=== PATIENT | female | born 1990 | race Two or more races ===

== ENCOUNTER 2024-09-15 02:40 | Inpatient (IN) | payer MEDICAID, OTHER ==
[2024-09-15] VITALS (9 sets, daily range): BP systolic 130–165; BP diastolic 73–107; PULSE 66–90; RESP 16–18; TEMP 98–98.7; O2SAT 98–100
[~2024-09-15] VITALS: Ht 175.3 cm; Wt 113.6 kg
--- NOTE | 2024-09-15 03:21 | ED.PDOC ---
History of Present Illness HPI Comments 42-year-old female came to ER due the palpitations. Patient has history of hypertension and Sullivan Parkinson White. Patient states your provider recently change your hypertensive medications. For the past week, had episodes of palpitations twice. She was asleep, when she woke up to do palpitations, with associated headaches, nausea and vomiting. Blood pressure upon arrival was 170/100 mmHg Chief Complaint: Palpitations Time Seen by MD: 03:21 Reviewed Notes: Nurses Notes Allergies: Coded Allergies: NO KNOWN ALLERGIES (Unverified , 09/15/24) Information Source: Patient Mode of Arrival: Ambulatory Severity: Moderate Timing: Hours Duration: Intermittent Prehospital treatment: None Past Medical History PAST MEDICAL HISTORY: HTN Past Medical History (Other): Ozxqv-Rsdqezqln-Gygcv Surgical History: Denies all surgeries SYSTEMS APPLICATIONS PROGRAMMING LEAD History: Denies all SYSTEMS APPLICATIONS PROGRAMMING LEAD Hx Family History Family History: Reviewed,noncontributory to illness Social History Smoker: Non-Smoker Alcohol: Denies ETOH Use Drugs: Denies Drug Use Lives In: Home Constitutional: denies: chills, diaphoresis, fatigue, fever, malaise, sweats, weakness, others EENTM: denies: blurred vision, double vision, ear bleeding, ear discharge, ear drainage, ear pain, ear ringing, eye pain, eye redness, hearing loss, mouth pain, mouth swelling, nasal discharge, nose bleeding, nose congestion, nose pain, photophobia, tearing, throat pain, throat swelling, voice changes, others Respiratory: denies: cough, hemoptysis, orthopnea, SOB at rest, shortness of breath, SOB with excertion, stridor, wheezing, others Cardiovascular: reports: chest pain, palpitations; denies: dizzy spells, diaphoresis, Dyspnea on exertion, edema, irregular heart beat, left arm pain, lightheadedness, PND, syncope, others Gastrointestinal: reports: nausea, vomiting; denies: abdomen distended, abdominal pain, blood streaked bowels, constipated, diarrhea, dysphagia, difficulty swallowing, hematemesis, melena, poor appetite, poor fluid intake, rectal bleeding, rectal pain, others Genitourinary: denies: abnormal vagina bleeding, burning, dyspareunia, dysuria, flank pain, frequency, hematuria, incontinence, pain, , vagina discharge, urgency, others Neurological: denies: dizziness, fainting, headache, left sided numbness, left sided weakness, numbness, paresthesia, pre-existing deficit, right sided numbness, right sided weakness, seizure, speech problems, tingling, tremors, weakness, others Musculoskeletal: denies: back pain, gout, joint pain, joint swelling, muscle pain, muscle stiffness, neck pain, others Integumetry: denies: bruises, change in color, change in hair/nails, dryness, laceration, lesions, lumps, rash, wounds, others Allergic/Immunocompromised: denies: Difficulty Healing, Frequent Infections, Hives, Itching, others Hematologic/Lymphatic: denies: anemia, blood clots, easy bleeding, easy bruising, swollen glands, others Endocrine: denies: excessive hunger, excessive sweating, excessive thirst, excessive urination, flushing, intolerance to cold, intolerance to heat, unexplained weight gain, unexplained weight loss, others Psychiatric: denies: anxiety, bipolar disorder, depression, hopeless, panic disorder, schizophrenia, sleepless, suicidal, others Physical Exam General Appearance: No Apparent Distress, Normal HEENT: Normal ENT Inspection, Pharynx Normal, TMs Normal Neck: Full Range of Motion, Non-Tender, Normal, Normal Inspection Respiratory: Chest Non-Tender, Lungs Clear, No Accessory Muscle Use, No Respiratory Distress, Normal Breath Sounds Cardiovascular: No Edema, No JVD, No Murmur, No Gallop, Normal Peripheral Pulses, Regular Rate/Rhythm Breast Exam: Deferred Gastrointestinal: No Organomegaly, Non Tender, No Pulsatile Mass, Normal Bowel Sounds, Soft Genitalia: Deferred Pelvic: Deferred Rectal: Deferred Extremities: No calf tenderness, Normal capillary refill, Normal inspection, Normal range of motion, Non-tender, No pedal edema Musculoskeletal : Apperance: Normal Neurologic: Alert, supervisor picking crew II-XII nml as Tested, No Motor Deficits, Normal Affect, Normal Mood, No Sensory Deficits Cerebellar Function: Normal Reflexes: Normal Skin: Dry, Normal Color, Warm Lymphatic: No Adenopathy Was a procedure done? Was a procedure done?: No EKG EKG : Pulse Rate (adult): 72 Cardiac Rhythm: NSR Hypertrophy: LAE Differential Dx Considerations may include: Anemia, electrolyte imbalance, palpitations, hypertension X-Ray, Labs, Meds, VS Vital Signs Date Time Temp Pulse Resp B/P (MAP) Pulse Ox O2 Delivery O2 Flow Rate FiO2 09/15/24 03:21 72 09/15/24 02:54 98.2 74 18 170/100 (123) 100 98.2 Lab Test 09/15/24 05:56 09/15/24 03:47 09/15/24 02:50 Range/Units White Blood Count Pending Red Blood Count Pending Hemoglobin Pending Hematocrit Pending Mean Corpuscular Volume Pending Mean Corpuscular Hemoglobin Pending Mean Corpuscular Hemoglobin Concent Pending Red Cell Distribution Width Pending Platelet Count Pending Mean Platelet Volume Pending Neutrophils (%) (Auto) Pending Lymphocytes (%) (Auto) Pending Monocytes (%) (Auto) Pending Basophils (%) (Auto) Pending Neutrophils # (Auto) Pending Lymphocytes # (Auto) Pending Monocytes # (Auto) Pending Sodium Level 140 136-145 mmol/L Potassium Level 3.6 3.5-5.1 mmol/L Chloride Level 105 98-107 mmol/L Carbon Dioxide Level 26 20-31 mmol/L Anion Gap 9 5-15 Blood Urea Nitrogen 17 9-23 mg/dL Creatinine 1.07 H 0.550-1.02 mg/dL Glomerular Filtration Rate Calc 69 >90 mL/min BUN/Creatinine Ratio 15.9 10.0-20.0 Serum Glucose 91 74-106 mg/dL Calcium Level 9.6 8.7-10.4 mg/dL Troponin I High Sensitivity Pending 10 10 </=34 ng/L Time of 1ST Reevaluation: 03:14 Reevaluation 1ST: Unchanged Patient Education/Counseling: Diagnosis, Treatment Family Education/Counseling: No Family Present Departure 1 Departure Time of Disposition: 06:32 (Patient presented with chest pain that was concerning for possible STEMI, ACS, PE, Pneumonia, Muscle Strain, COPD, Dissection. Data: 1. I ordered and reviewed the result of at least 3 labs including a CBC, BMP, and Troponin. 2. I independently interpreted the following tests: EKG which shows sinus arrhythmia and Chest X-ray which shows benign chest.Risk:This patient has a high risk of morbidity due to further diagnostic testing or treatment and may suffer from an acute cardiac or respiratory disorder. Workup reveals concern for ACS and hypertensive urgency and patient should be admitted for further workup and possible expert consultation. ) Impression: Primary Impression: Hypertensive urgency Additional Impression: Acute chest pain Disposition: 09 ADMITTED INPATIENT Admit to: Med Surg Condition: Serious Critical Care Note Critical Care Time?: Yes (35 min-critical care time only) Critical care comment: Hypertensive urgency Authorized and Performed by: Oliva Martel MD Total critical care time: Approximately 38 minutes Due to a high probability of clinically significant, life threatening deterioration, the patient required my highest level of preparedness to intervene emergently and I personally spent this critical care time directly and personally managing the patient. This critical care time included obtaining a history; examining the patient; pulse oximetry; ordering and review of studies; arranging urgent treatment with development of a management plan; evaluation of patient's response to treatment; frequent reassessment; and, discussions with other providers. This critical care time was performed to assess and manage the high probability of imminent, life-threatening deterioration that could result in multi-organ failure. It was exclusive of separately billable procedures and treating other patients and teaching time. Please see my other sections and the rest of the note for further information on patient assessment and treatment. Stability Stability form required: No Heart Score Heart Score: Heart Score Response (Comments) Value History Slightly Suspicious 0 EKG Repolarization Disturb 1 Age <45 0 Risk Factors 1 or 2 risk factors 1 Troponin Normal limit 0 Total 2 I personally scribed for OLIVA MARTEL MD ([email or web address]) on 09/15/24 at 03:21. Electronically submitted by Nickolas Friedman ([email or web address]). I personally scribed for OLIVA MARTEL MD ([email or web address]) on 09/15/24 at 03:35. Electronically submitted by Nickolas Friedman ([email or web address]). OLIVA MARTEL MD Sep 15, 2024 03:21
--- NOTE | 2024-09-15 05:53 | DVH ---
CHEST RADIOGRAPH Indication: palpitations Technique: Single frontal view of the chest was obtained COMPARISON: None FINDINGS: Lines and Tubes: None Lungs: Clear Pleura: No effusion. No pneumothorax. Cardiomediastinal contours: Unremarkable. Possible right atrial closure device. Bones: Unremarkable IMPRESSION: 1. No acute disease.
[2024-09-15 06:17] LABS: Basophils # (auto) 0.1 10 ^3/uL (0-0.2); Basophils % (auto) 0.7 % (0.0-2.0); Eosinophils # (auto) 0 10 ^3/uL (0-0.8); Eosinophils % (auto) 0.2 % (0.0-7.0); Hemoglobin 12.4 g/dL (12.2-16.2); Lymphocytes # (auto) 2.8 10 ^3/uL (0.4-5.4); Mean Corpuscular Volume 80.3 fL (80.0-100.0); Neutrophils # (auto) 6.5 10 ^3/uL (1.6-8.6); Platelet Count (auto) 318 10^3/uL (140-450)
[2024-09-15 06:18] LABS: Lymphocytes % (auto) 28.3 % (10.0-50.0); Mean Corpuscular Hemoglobin 26.8 pg (28.0-32.0); Mean Corpuscular Hgb Conc. 33.4 g/dL (32.0-36.0); Monocytes # (auto) 0.6 10 ^3/uL (0-1.3); Monocytes % (auto) 5.6 % (0.0-12.0); Neutrophils % (auto) 65.2 % (37.0-80.0); Nucleated Red Blood Cells % 0.1 %; Red Blood Cells 4.61 10^6/uL (4.0-5.20); Red Cell Distribution Width 14.6 % (11.8-14.3)
[2024-09-15 06:21] LABS: Chloride 105 mmol/L (98-107); Potassium 3.6 mmol/L (3.5-5.1); Sodium 140 mmol/L (136-145)
[2024-09-15 06:22] LABS: Anion Gap 9 (5-15); Carbon Dioxide 26 mmol/L (20-31)
[2024-09-15 06:23] LABS: Calcium 9.6 mg/dL (8.7-10.4)
[2024-09-15 06:27] LABS: Glucose 91 mg/dL (74-106)
[2024-09-15 06:28] LABS: BUN/Creatinine Ratio 15.9 (10.0-20.0); Blood Urea Nitrogen 17 mg/dL (9-23)
--- NOTE | 2024-09-15 07:16 | DVHHP2 ---
History of Present Illness Reason for Visit: Uncontrolled BP History of Present Illness This 34-year-old female with past medical history of hypertension, Sullivan Parkinson White s/p catheter ablation, and obesity presents in the ED with a chief complaint of uncontrolled BP. The patient reports that she used to take losartan for hypertension but stopped the medication because of the weight gain. The patient states that she was started on benazepril 40 mg QD and Zoloft 50mg QD by her primary doctor four days ago, since starting with the new medications, BP became uncontrolled [id number]. She denies headaches, diaphoresis, chest pain, shortness of breath, or dyspnea on exertion. Past Medical History As stated in HPI Past Surgical History Catheter ablation Family History Reviewed, non-contributory to the management of this case. Past Social History The patient lives at home, denies smoking, alcohol or illicit drugs abuse. Review of Systems Constitutional: Yes: Malaise; No: Fever, Chills, Sweats, Weakness, Other Eyes: No: Pain, Vision change, Conjunctivae inflammation, Eyelid inflammation, Other, Redness ENT: No: Ear pain, Ear discharge, Nose pain, Nose discharge, Nose congestion, Mouth pain, Mouth swelling, Throat pain, Throat swelling, Other Respiratory: No: Cough, Dry, Shortness of breath, SOB with excertion, Wheezing, Hemoptysis, Pleuritic Pain, Sputum, Wheezing, Other Cardiovascular: Palpitations, Other (Uncontrolled BP); No: Chest Pain, O rthopnea, Paroxysmal Noc. Dyspnea, Edema, Lt Headedness Gastrointestinal: No: Nausea, Vomiting, Abdominal Pain, Diarrhea, Constipation, Melena, Hematochezia, Other Genitourinary: No Dysuria, No Frequency, No Incontinence, No Hematuria, No Retention, No Other Skin: No: Rash, Lesions, Jaundice, Bruising, Other Neurological: No: Weakness, Numbness, Incoordination, Change in speech, Confusion, Seizures, Other Allergies: Coded Allergies: NO KNOWN ALLERGIES (Unverified , 09/15/24) Exam Vital Signs Vital Signs Date Time Temp Pulse Resp B/P (MAP) Pulse Ox O2 Delivery O2 Flow Rate FiO2 09/15/24 03:21 72 09/15/24 02:54 98.2 18 170/100 (123) 100 98.2 General Appearance: Alert, Oriented X3, Cooperative, mild distress, Other (Obese) HEENT: Atraumatic, PERRLA, EOMI, Mucous membr. moist/pink Respiratory: Clear to auscultation Cardiovascular: Regular rate, Normal S1, Normal S2, No murmurs Abdominal: Normal bowel sounds, Soft, No tenderness Extremities: No clubbing, No cyanosis, No edema, Normal pulses, No tenderness/swelling Skin: No rashes, No breakdown, No significant lesion Neuro: Normal gait, Normal speech, Strength at 5/5 X4 ext, Normal tone Psych/Mental Status: Mental status NL Labs/Xrays Labs Test 09/15/24 05:56 Range/Units White Blood Count 10.0 4.4-10.8 10^3/uL Red Blood Count 4.61 4.0-5.20 10^6/uL Hemoglobin 12.4 12.2-16.2 g/dL Hematocrit 37.0 36.0-46.0 % Mean Corpuscular Volume 80.3 80.0-100.0 fL Mean Corpuscular Hemoglobin 26.8 L 28.0-32.0 pg Mean Corpuscular Hemoglobin Concent 33.4 32.0-36.0 g/dL Red Cell Distribution Width 14.6 H 11.8-14.3 % Platelet Count 318 140-450 10^3/uL Mean Platelet Volume 6.7 L 6.9-10.8 fL Neutrophils (%) (Auto) 65.2 37.0-80.0 % Lymphocytes (%) (Auto) 28.3 10.0-50.0 % Monocytes (%) (Auto) 5.6 0.0-12.0 % Eosinophils (%) (Auto) 0.2 0.0-7.0 % Basophils (%) (Auto) 0.7 0.0-2.0 % Neutrophils # (Auto) 6.5 1.6-8.6 10 ^3/uL Lymphocytes # (Auto) 2.8 0.4-5.4 10 ^3/uL Monocytes # (Auto) 0.6 0-1.3 10 ^3/uL Eosinophils # (Auto) 0 0-0.8 10 ^3/uL Basophils # (Auto) 0.1 0-0.2 10 ^3/uL Nucleated Red Blood Cells 0.1 % Sodium Level 140 136-145 mmol/L Potassium Level 3.6 3.5-5.1 mmol/L Chloride Level 105 98-107 mmol/L Carbon Dioxide Level 26 20-31 mmol/L Anion Gap 9 5-15 Blood Urea Nitrogen 17 9-23 mg/dL Creatinine 1.07 H 0.550-1.02 mg/dL Glomerular Filtration Rate Calc 69 >90 mL/min BUN/Creatinine Ratio 15.9 10.0-20.0 Serum Glucose 91 74-106 mg/dL Calcium Level 9.6 8.7-10.4 mg/dL Troponin I High Sensitivity 9 </=34 ng/L PROCEDURE(s): CXRP - CHEST PORTABLE REASON: palpitations ORDER NUMBER(s): [id number], ACCESSION NUMBER(s): [id number] CHEST RADIOGRAPH Indication: palpitations Technique: Single frontal view of the chest was obtained COMPARISON: None FINDINGS: Lines and Tubes: None Lungs: Clear Pleura: No effusion. No pneumothorax. Cardiomediastinal contours: Unremarkable. Possible right atrial closure device. Bones: Unremarkable IMPRESSION: 1. No acute disease. Assessment/Plan Assessment/Plan # accelerated hypertension # palpitations # hx of WPW s/p catheter ablation Admit to telemetry unit Started on nifedipine Hydralazine as needed Magnesium IV Monitor BP Echo Cardiology consult #JERMAINE on CKD 2 IVF Monitor # morbid obesity Lifestyle modification counseled with diet, regular exercise, and weight loss check a1c, tsh, lipid panel Medical plan discussed with patient Plan discussed with: Patient Date of Service: Sep 15, 2024 Billing Provider: DECLAN MAYERS Common Visit Codes: [id number] INP/OBS CARE (HIGH) DECLAN MAYERS Sep 15, 2024 07:16
[2024-09-15] MEDS: NIFEdipine ER 30 MG TAB PO ONE (08:43)
[2024-09-15] MEDS: hydrALAZINE HCL 20 MG/ML VL IV ONE (08:44)
[2024-09-15 09:01] LABS: Triglycerides 97 mg/dL (< 150)
[2024-09-15 09:03] LABS: HDL Cholesterol 56 mg/dL (40-59)
[2024-09-15 09:09] LABS: Cholesterol 183 mg/dL (< 200)
[2024-09-15 09:11] LABS: LDL Cholesterol 109 mg/dL (< 100)
[2024-09-15 09:58] LABS: Urine Bacteria None Seen /hpf (None Seen)
[2024-09-15] MEDS: MAGNESIUM SULFATE 1GM/100ML 100 ML IV ONE (10:00)
[2024-09-15] MEDS: SOD CHL 0.45% 1,000 ML IV SCH (10:04)
[2024-09-15] MEDS: ACETAMINOPHEN 325 MG TAB PO PRN (10:07)
[2024-09-15 10:09] LABS: Urine Blood Negative /uL (Negative); Urine Clarity Clear (Clear); Urine Color Light-Yellow (Yellow); Urine Protein, UAD Negative (Negative); Urine Specific Gravity 1.019 (1.001-1.035); Urine Squamous Epithelial Cell FEW /hpf (<5); Urine Urobilinogen Normal (Negative); Urine WBC 1 /HPF (0-5); Urine pH 5.5 (5.0-9.0)
--- NOTE | 2024-09-15 13:16 | DVHINCON2 ---
Date Seen: Sep 15, 2024 Referring Physician MOE Shah Reason for Consultation Palpitations with history of WPW History of Present Illness This is a 34-year-old female patient who presents to the emergency room with chief complaint of palpitations. The patient reports that the palpitations b wilbur at approximately 2:00 a.m. when she woke up to use the restroom. She comes to the emergency room for further evaluation. Initial twelve lead electrocardiogram reveals normal sinus rhythm without any ST segment changes. Troponin levels have been negative. Significant past medical history includes Rksae-Tpzagtvas-Ivxau syndrome status post ablation in 2017, hypertension, and obesity. The patient also mentions that she has a loop recorder that was placed in 2017. She denies following up with a broadcast maintenance technician since 2017. Past Medical History Past medical history reviewed. No other significant than mentioned above. Past Surgical History Cholecystectomy Family History: Cardiovascular disease G8 MOTHER Diabetes mellitus G8 MOTHER Hypercholesterolemia G8 MOTHER Family History Family history reviewed. Social History Denies the use of tobacco, alcohol or illicit drugs. Allergies: Coded Allergies: NO KNOWN ALLERGIES (Unverified , 09/15/24) Home Meds Home medications reviewed. Current Medications Current Medications Medications (Trade) Dose Ordered Sig/Roberto Route PRN Reason Start Time Stop Time Status Last Admin Acetaminophen/ Hydrocodone Bitart ([place] 5/325MG Tab) 1 tab Q4HP PRN PO MODERATE PAIN (4-6 PAIN SCALE) 09/15/24 07:00 Ondansetron HCl (Zofran) 4 mg Q4HP PRN IV NAUSEA / VOMITING 09/15/24 07:00 Acetaminophen (Tylenol Tablet) 650 mg Q6HP PRN PO PAIN SCALE 1-3 OR TEMP>100.4 09/15/24 07:00 09/15/24 10:07 Morphine Sulfate 2 mg Q4HPRN PRN IV SEVERE PAIN (7-10 PAIN SCALE) 09/15/24 07:00 Sodium Chloride 1,000 ml @ 100 mls/hr Q10H IV 09/15/24 07:00 09/15/24 10:04 Hydralazine HCl (Apresoline Injection) 10 mg Q6HP PRN IV SBP>150 09/15/24 07:00 Nifedipine (Procardia Xl (Time-Release)) 60 mg DAILY PO 09/16/24 10:00 Review of Systems Constitutional: No symptom reported Ears, Nose, & Throat: No symptom reported Eyes: No symptom reported Neurological: No symptoms reported Pulmonary/Respiratory: No symptoms reported Cardiovascular: Palpitations Gastrointestinal: No symptom reported Genitourinary: No symptom reported Musculoskeletal: No symptom reported Skin: No symptom reported Psychiatric: No symptom reported Endocrine: No symptom reported Hematologic/Lymphatic: No symptom reported Vital Signs Vital Signs Date Time Temp Pulse Resp B/P (MAP) Pulse Ox O2 Delivery O2 Flow Rate FiO2 09/15/24 12:56 78 18 130/76 (94) 99 09/15/24 08:06 Room Air* 0 21 09/15/24 08:06 98.7 98.7 Physical Exam General Appearance: Cooperative. Well-developed. Well-nourished. No acute distress. Pulmonary/Respiratory: Clear, bilateral breaths sounds. Cardiovascular/Chest: Regular rate and rhythm. Peripheral Pulses: 2+ Radial (R). 2+ Radial (L). 2+ Pedal (R). 2+ Pedal (L) Abdominal Exam: Normal bowel sounds. Ankle Exam: Negative ankle edema Lower extremities: Negative lower extremity edema Neuro/Mental Status: A/OX4, coherent. Thoughts/Psych: Normal thought pattern. Appropriate mood and affect. Good judgment and insight. Appearance: No acute distress. Skin Exam: Normal inspection. Normal color. Warm and dry. Labs/Diagnostic Data Labs Test 09/15/24 09:57 09/15/24 05:56 Range/Units Urine Color Light-yellow Yellow Urine Clarity Clear Clear Urine pH 5.5 5.0-9.0 Urine Specific [place] 1.019 1.001-1.035 Urine Protein Negative Negative Urine Ketones Negative Negative Urine Blood Negative Negative /uL Urine Nitrite Negative Negative Urine Bilirubin Negative Negative Urine Urobilinogen Normal Negative mg/dL Urine Leukocyte Esterase Negative Negative /uL Urine RBC 2 0 - 4 /hpf Urine Microscopic WBC 1 0-5 /HPF Urine Squamous Epithelial Cells Few <5 /hpf Urine Bacteria None seen None Seen /hpf Urine Glucose Normal Normal mg/dL Urine Test Negative Negative White Blood Count 10.0 4.4-10.8 10^3/uL Red Blood Count 4.61 4.0-5.20 10^6/uL Hemoglobin 12.4 12.2-16.2 g/dL Hematocrit 37.0 36.0-46.0 % Mean Corpuscular Volume 80.3 80.0-100.0 fL Mean Corpuscular Hemoglobin 26.8 L 28.0-32.0 pg Mean Corpuscular Hemoglobin Concent 33.4 32.0-36.0 g/dL Red Cell Distribution Width 14.6 H 11.8-14.3 % Platelet Count 318 140-450 10^3/uL Mean Platelet Volume 6.7 L 6.9-10.8 fL Neutrophils (%) (Auto) 65.2 37.0-80.0 % Lymphocytes (%) (Auto) 28.3 10.0-50.0 % Monocytes (%) (Auto) 5.6 0.0-12.0 % Eosinophils (%) (Auto) 0.2 0.0-7.0 % Basophils (%) (Auto) 0.7 0.0-2.0 % Neutrophils # (Auto) 6.5 1.6-8.6 10 ^3/uL Lymphocytes # (Auto) 2.8 0.4-5.4 10 ^3/uL Monocytes # (Auto) 0.6 0-1.3 10 ^3/uL Eosinophils # (Auto) 0 0-0.8 10 ^3/uL Basophils # (Auto) 0.1 0-0.2 10 ^3/uL Nucleated Red Blood Cells 0.1 % Sodium Level 140 136-145 mmol/L Potassium Level 3.6 3.5-5.1 mmol/L Chloride Level 105 98-107 mmol/L Carbon Dioxide Level 26 20-31 mmol/L Anion Gap 9 5-15 Blood Urea Nitrogen 17 9-23 mg/dL Creatinine 1.07 H 0.550-1.02 mg/dL Glomerular Filtration Rate Calc 69 >90 mL/min BUN/Creatinine Ratio 15.9 10.0-20.0 Serum Glucose 91 74-106 mg/dL Hemoglobin A1c 5.2 <5.7 % A1C Calcium Level 9.6 8.7-10.4 mg/dL Magnesium Level 2.1 1.6-2.6 mg/dL Troponin I High Sensitivity 9 </=34 ng/L Triglycerides Level 97 < 150 mg/dL Cholesterol Level 183 < 200 mg/dL LDL Cholesterol 109 H < 100 mg/dL HDL Cholesterol 56 40-59 mg/dL Thyroid Stimulating Hormone (TSH) 1.66 0.55-4.78 uIU/mL Assessment Palpitations, rule out cardiac arrhythmia Vgnvq-Evnwhxgxb-Qaefs syndrome, status post ablation Rule out structural heart disease Hypertensive urgency, resolved Obesity Plan/Recommendation We will continue with the following plan/recommendations (Dr. Lopez): Case discussed with . We will proceed with obtaining a transthoracic echocardiogram to evaluate cardiac function. Continue with the aggressive blood pressure control. The patient currently has a loop recorder that was placed in 2017 (battery likely not functional at this point since greater than [address]). There are no cardiac events noted on event monitor at this time. In the setting of an unremarkable transthoracic echocardiogram, there is no further inpatient cardiac workup indicated at this time. We will recommend for the patient to follow up with Cardiology in the outpatient setting. We will recommend for the patient to have her loop recorder replaced, which can be done in the outpatient setting. Thank you for allowing us to care for this patient. Please call with any questions or concerns. Critical care time spent: 43 minutes This medical document was created using an electronic medical record system with voice recognition software and computerized dictation system. Although this document has been carefully reviewed, there might still be some phonetic and typographical errors. Occasional wrong-word or ``sound-alike substitutions may have occurred due to the inherent limitations of voice recognition software. These areas are purely typographical due to imperfections of the software programs and do not reflect any compromise in the patient's medical care. Please read the chart carefully and recognize, using context, where these substitutions have occurred. Plan discussed with: Patient NYHA Physical activity limitations: NA Date of Service: Sep 15, 2024 Billing Provider: REMY MARISCAL Cardiology Common Codes: 62523-[id number] INP/OBS CARE (High) Cardiology Consultation Codes: [id number] CONSULT <45MIN REMY MARISCAL Sep 15, 2024 13:16
--- NOTE | 2024-09-15 15:18 | DVHSR ---
APPROVED REPORT EXAM: Two-dimensional and M-mode echocardiogram with Doppler and color Doppler. Blood Pressure: 165/107 mmHg INDICATION Accelerated HTN RISK FACTORS Obesity: Height: 5' 9", Weight: 254 DIMENSIONS LVDd4.3 (3.8-5.7cm)LA (2D)4.0 (1.9-4.0cm)Aortic Root3.1 (2.0-3.7cm) LVDs2.9 (2.5-4.0cm)LA (MM) (1.9-4.0cm)Aortic Cusp Exc1.9 (1.5-2.0cm) EF (%) 62.1 (55-70%)Rt. Atrium4.0 (1.9-4.0cm)Asc. Aorta cm IVSd1.2 (0.7-1.1cm)RV (D) (1.8-2.4cm) PWd1.2 (0.7-1.1cm) Mitral Valve MitralMitral Stenosis E wave0.80m/sMV Mean GR.mmHg A wave0.50m/sMV Peak GR.mmHg E/A ratio1.62D MVAcm2 Aortic Valve Aortic ValveAortic Stenosis V11.10m/Michela Mean GR.5mmHg V21.50m/Michela Peak GR.9mmHg LVOT Diameter2.2 (1.8-2.4cm)Doppler AVA2.79cm2 Pulmonic Valve V20.70m/s Conclusion Sinus rhythm Concentric LVH with left atrial enlargement. Mild aortic root enlargement. Valves are normal. Left ventricular systolic performance is normal at 60% with normal RV function. Unremarkable Doppler. No pericardial effusion masses or vegetations.
[2024-09-15] MEDS: MORPHINE SULFATE INJ 2 MG/ml SYRG IV PRN (15:59)
[2024-09-15] MEDS: HYDROcodone-ACET 5/325MG TAB PO PRN (18:07)
[2024-09-15] MEDS: hydrALAZINE HCL 20 MG/ML VL IV PRN (21:59)
--- NOTE | 2024-09-15 23:11 | DVHPN2 ---
Subjective The patient is seen and examined at bedside. No complaint today. Reviewed: Care Plan, H&P, Labs, Medications, Previous Orders, Radiology Changes from previous H/P or p: No Changes Eyes: No Pain, No Vision change, No Conjunctivae inflammation, No Eyelid inflammation, No Other, No Redness ENT: No Ear pain, No Ear discharge, No Nose pain, No Nose discharge, No Nose congestion, No Mouth pain, No Mouth swelling, No Throat pain, No Throat swelling, No Other Cardiovascular: No Chest Pain; Palpitations; No Orthopnea, No Paroxysmal Noc. Dyspnea, No Edema, No Lt Headedness; Other (Uncontrolled BP) Respiratory: No Cough, No Dry, No Shortness of breath, No SOB with excertion, No Wheezing, No Hemoptysis, No Pleuritic Pain, No Sputum, No Other Gastrointestinal: No Nausea, No Vomiting, No Abdominal Pain, No Diarrhea, No Constipation, No Melena, No Hematochezia, No Other Genitourinary: No Dysuria, No Frequency, No Incontinence, No Hematuria, No Retention, No Other Skin: No Rash, No Lesions, No Jaundice, No Bruising, No Other Objective Vitals Vital Signs Date Time Temp Pulse Resp B/P (MAP) Pulse Ox O2 Delivery O2 Flow Rate FiO2 09/15/24 22:45 90 151/82 (105) 09/15/24 21:00 98.2 18 98 98.2 09/15/24 08:06 Room Air* 0 21 General Appearance: Alert, Oriented X3, Cooperative, No acute distress HEENT: Atraumatic, PERRLA, EOMI, Mucous membr. moist/pink Neck: Supple Lungs: Clear to auscultation, Normal air movement Cardiovascular: Regular rate, Normal S1, Normal S2, No murmurs, Gallops, Rubs Abdomen: Normal bowel sounds, Soft, No tenderness, No hepatospenomegaly Neuro: Cranial nerves 3-12 NL Psych/Mental Status: Mental status NL Medications Current Medications Medications Dose Ordered Sig/Roberto Route Start Time Stop Time Status Last Admin Dose Admin Acetaminophen/ Hydrocodone Bitart 1 tab Q4HP PRN PO 09/15/24 07:00 09/15/24 18:07 1 TAB Ondansetron HCl 4 mg Q4HP PRN IV 09/15/24 07:00 Acetaminophen 650 mg Q6HP PRN PO 09/15/24 07:00 09/15/24 10:07 650 MG Morphine Sulfate 2 mg Q4HPRN PRN IV 09/15/24 07:00 09/15/24 15:59 2 MG Sodium Chloride 1,000 ml @ 100 mls/hr Q10H IV 09/15/24 07:00 09/15/24 15:54 100 MLS/HR Hydralazine HCl 10 mg Q6HP PRN IV 09/15/24 07:00 09/15/24 21:59 10 MG Nifedipine 60 mg DAILY PO 09/16/24 10:00 Laboratory Results Laboratory Tests 09/15/24 05:56 Chemistry Test 09/15/24 05:56 Calcium Level 9.6 mg/dL (8.7-10.4) Magnesium Level 2.1 mg/dL (1.6-2.6) Lipid panel Test 09/15/24 05:56 Cholesterol Level 183 mg/dL (< 200) HDL Cholesterol 56 mg/dL (40-59) Triglycerides Level 97 mg/dL (< 150) HgA1c, TSH Test 09/15/24 05:56 Hemoglobin A1c 5.2 % A1C (<5.7) Thyroid Stimulating Hormone (TSH) 1.66 uIU/mL (0.55-4.78) Urinalysis Test 09/15/24 09:57 Urine Color Light-yellow (Yellow) Urine Clarity Clear (Clear) Urine pH 5.5 (5.0-9.0) Urine Specific [place] 1.019 (1.001-1.035) Urine Protein Negative (Negative) Urine Ketones Negative (Negative) Urine Blood Negative /uL (Negative) Urine Nitrite Negative (Negative) Urine Bilirubin Negative (Negative) Urine Urobilinogen Normal mg/dL (Negative) Urine Leukocyte Esterase Negative /uL (Negative) Urine RBC 2 /hpf (0 - 4) Urine Microscopic WBC 1 /HPF (0-5) Urine Squamous Epithelial Cells Few /hpf (<5) Urine Bacteria None seen /hpf (None Seen) Urine Glucose Normal mg/dL (Normal) Urine Test Negative (Negative) Labs and/or images reviewed: Labs reviewed by me Assessment/Plan Assessment/Plan # accelerated hypertension # palpitations # hx of WPW s/p catheter ablation #JERMAINE on CKD 2 # morbid obesity Continuing current management with nifedipine IV hydralazine as needed. We will monitor blood pressure Plan discussed with: Patient Date of Service: Sep 15, 2024 Billing Provider: MARIA ESTHER BELL MD Common Visit Codes: [id number] INP/OBS CARE(HIGH) MARIA ESTHER BELL MD Sep 15, 2024 23:11
[2024-09-15] MEDS: ONDANSETRON HCL 4 MG/2 ML VIAL IV PRN (23:21)
[2024-09-16 00:05] VITALS: BP 128/72; PULSE 78; RESP 20; TEMP 97.9; O2SAT 96
[2024-09-16 05:00] VITALS: BP 116/62; PULSE 70; RESP 18; TEMP 98.1; O2SAT 98
[2024-09-16 05:40] LABS: Basophils # (auto) 0 10 ^3/uL (0-0.2); Basophils % (auto) 0.3 % (0.0-2.0); Eosinophils # (auto) 0 10 ^3/uL (0-0.8); Eosinophils % (auto) 0.1 % (0.0-7.0); Hematocrit 36.2 % (36.0-46.0); Hemoglobin 12.1 g/dL (12.2-16.2); Lymphocytes # (auto) 2.2 10 ^3/uL (0.4-5.4); Lymphocytes % (auto) 25.6 % (10.0-50.0); Mean Corpuscular Hemoglobin 27.3 pg (28.0-32.0); Mean Corpuscular Hgb Conc. 33.5 g/dL (32.0-36.0); Mean Corpuscular Volume 81.4 fL (80.0-100.0); Monocytes # (auto) 0.5 10 ^3/uL (0-1.3); Monocytes % (auto) 5.5 % (0.0-12.0); Neutrophils # (auto) 5.8 10 ^3/uL (1.6-8.6); Neutrophils % (auto) 68.5 % (37.0-80.0); Platelet Count (auto) 306 10^3/uL (140-450); Red Blood Cells 4.45 10^6/uL (4.0-5.20); Red Cell Distribution Width 15.2 % (11.8-14.3); White Blood Cell 8.4 10^3/uL (4.4-10.8)
[2024-09-16 05:56] LABS: Alanine Aminotransferase 15 U/L (7-40); Albumin 4.2 g/dL (3.2-4.8); Alkaline Phosphatase 58 U/L (46-116); Anion Gap 9 (5-15); Aspartate Aminotransferase 14 U/L (13-40); BUN/Creatinine Ratio 11.2 (10.0-20.0); Blood Urea Nitrogen 10 mg/dL (9-23); Calcium 9.2 mg/dL (8.7-10.4); Carbon Dioxide 24 mmol/L (20-31); Chloride 106 mmol/L (98-107); Glucose 95 mg/dL (74-106); Potassium 3.7 mmol/L (3.5-5.1); Sodium 139 mmol/L (136-145); Total Protein 6.7 g/dL (5.7-8.2)
[2024-09-16 05:57] LABS: Bilirubin, Total 0.4 mg/dL (0.2-1.0)
[2024-09-16 08:00] VITALS: PULSE 65; PULSE 96; RESP 18; O2SAT 99
[2024-09-16 09:00] VITALS: BP 126/68; PULSE 96; RESP 18; TEMP 98.2; O2SAT 99
[2024-09-16] MEDS: NIFEdipine ER 30 MG TAB PO SCH (10:38)
[2024-09-16 13:00] VITALS: BP 135/82; PULSE 69; RESP 16; TEMP 98; O2SAT 100
--- NOTE | 2024-09-16 13:12 | DVHDS2 ---
Discharge Summary Date of Admission Sep 15, 2024 at 06:46 Date of Discharge: Sep 16, 2024 Labs/Diagnostic Data: Laboratory Results Test 09/16/24 05:00 09/15/24 09:57 09/15/24 05:56 White Blood Count 8.4 10^3/uL (4.4-10.8) Red Blood Count 4.45 10^6/uL (4.0-5.20) Hemoglobin 12.1 g/dL (12.2-16.2) Hematocrit 36.2 % (36.0-46.0) Mean Corpuscular Volume 81.4 fL (80.0-100.0) Mean Corpuscular Hemoglobin 27.3 pg (28.0-32.0) Mean Corpuscular Hemoglobin Concent 33.5 g/dL (32.0-36.0) Red Cell Distribution Width 15.2 % (11.8-14.3) Platelet Count 306 10^3/uL (140-450) Mean Platelet Volume 6.6 fL (6.9-10.8) Neutrophils (%) (Auto) 68.5 % (37.0-80.0) Lymphocytes (%) (Auto) 25.6 % (10.0-50.0) Monocytes (%) (Auto) 5.5 % (0.0-12.0) Eosinophils (%) (Auto) 0.1 % (0.0-7.0) Basophils (%) (Auto) 0.3 % (0.0-2.0) Neutrophils # (Auto) 5.8 10 ^3/uL (1.6-8.6) Lymphocytes # (Auto) 2.2 10 ^3/uL (0.4-5.4) Monocytes # (Auto) 0.5 10 ^3/uL (0-1.3) Eosinophils # (Auto) 0 10 ^3/uL (0-0.8) Basophils # (Auto) 0 10 ^3/uL (0-0.2) Nucleated Red Blood Cells 0.0 % Sodium Level 139 mmol/L (136-145) Potassium Level 3.7 mmol/L (3.5-5.1) Chloride Level 106 mmol/L (98-107) Carbon Dioxide Level 24 mmol/L (20-31) Anion Gap 9 (5-15) Blood Urea Nitrogen 10 mg/dL (9-23) Creatinine 0.89 mg/dL (0.550-1.02) Glomerular Filtration Rate Calc 86 mL/min (>90) BUN/Creatinine Ratio 11.2 (10.0-20.0) Serum Glucose 95 mg/dL (74-106) Calcium Level 9.2 mg/dL (8.7-10.4) Total Bilirubin 0.4 mg/dL (0.2-1.0) Aspartate Amino Transferase (AST) 14 U/L (13-40) Alanine Aminotransferase (ALT) 15 U/L (7-40) Alkaline Phosphatase 58 U/L (46-116) Total Protein 6.7 g/dL (5.7-8.2) Albumin 4.2 g/dL (3.2-4.8) Urine Color Light-yellow (Yellow) Urine Clarity Clear (Clear) Urine pH 5.5 (5.0-9.0) Urine Specific [place] 1.019 (1.001-1.035) Urine Protein Negative (Negative) Urine Ketones Negative (Negative) Urine Blood Negative /uL (Negative) Urine Nitrite Negative (Negative) Urine Bilirubin Negative (Negative) Urine Urobilinogen Normal mg/dL (Negative) Urine Leukocyte Esterase Negative /uL (Negative) Urine RBC 2 /hpf (0 - 4) Urine Microscopic WBC 1 /HPF (0-5) Urine Squamous Epithelial Cells Few /hpf (<5) Urine Bacteria None seen /hpf (None Seen) Urine Glucose Normal mg/dL (Normal) Urine Test Negative (Negative) Hemoglobin A1c 5.2 % A1C (<5.7) Magnesium Level 2.1 mg/dL (1.6-2.6) Troponin I High Sensitivity 9 ng/L (</=34) Triglycerides Level 97 mg/dL (< 150) Cholesterol Level 183 mg/dL (< 200) LDL Cholesterol 109 mg/dL (< 100) HDL Cholesterol 56 mg/dL (40-59) Thyroid Stimulating Hormone (TSH) 1.66 uIU/mL (0.55-4.78) Other Laboratory Tests 09/16/24 05:00 Brief Hx & Hospital Course: see dictated note Condition at Discharge: Fair Final Diagnosis/Problems List htn Discharge Disposition: Home Discharge Instruct/Medications Diet: Cardiac 2g Na,low cholest Activity: See Comment Follow Up/Referral: fu with pcp in 1 wk Medications: script to pharmacy dc losartan Discharge Statement: "Patient was advised to return to the ER or call 911 if any headaches, dizziness, shortness of breath, chest pain, abdominal pain, bleeding, fevers, or worsening of medical condition. Patient was counseled about treatment plan, medications, possible side effects, patientverbalized understanding. All questions were answered to the best of my ability. This discharge took greater then 30 minutes in planning, reviewing documentation, counseling the patient, and discussing with other team members." ASSESSMENT ASSESSMENT Assessment htn Date of Service: Sep 16, 2024 Billing Provider: MARY BETH HERNANDEZ MD Common Visit Codes: [id number] DISCH DAY >30min MARY BETH HERNANDEZ MD Sep 16, 2024 13:12
[2024-09-16] MEDS ORDERED: NIFE1TAB30 PO (13:13)
[2024-09-16] MEDS ORDERED: HYDR25TA4 PO (13:13)
--- NOTE | 2024-09-16 13:23 | DVHDS ---
DATE OF DISCHARGE: 09/16/2024 The patient is a 34-year-old lady who was admitted with elevated blood pressure and has history of WPW status post ablation as well as hypertension. HOSPITAL COURSE: The patient's blood pressure was elevated to 170/100. The patient was seen in Cardiology consult. Echocardiogram done showed ejection fraction of 60% with concentric LVH. The patient is now improved in the blood pressure and wishes to go home. She will be discharged to be on hydrochlorothiazide 25 mg daily along with nifedipine extended release 60 mg daily. She will follow up with her primary in 1 week. FINAL DIAGNOSES: Therefore, * Hypertensive urgency. * WPW status post ablation. * Obesity. Time spent in discharge planning and review of plan with the patient and nursing was 38 minutes. MD GABRIEL Magana/THOMAS TID: [id number] RECEIPT: [id number]
[2024-09-16 13:51] VITALS: BP 138/88
--- NOTE | 2024-09-17 09:57 | ECG ---
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
== END 2024-09-16 14:46 | disposition home or self-care (01) | DRG 199 ==
LOC: ER 02:40 → EDBD 02:40 → OVERFLOW 06:46 → TELE-WESTW 13:07
PROVIDERS: ADMIT Internal Medicine; ATTEND Internal Medicine
DX: I16.0 Hypertensive urgency (principal); E66.01 Morbid (severe) obesity due to excess calories; N18.2 Chronic kidney disease, stage 2 (mild); I12.9 Hypertensive chronic kidney disease with stage 1 through stage 4 chronic kidney disease, or unspecified chronic kidney disease; Z79.899 Other long term (current) drug therapy; Z83.3 Family history of diabetes mellitus; Z82.49 Family history of ischemic heart disease and other diseases of the circulatory system; Z68.37 Body mass index [BMI] 37.0-37.9, adult
CPT/HCPCS: 36415; 71045; 80048; 80053; 80061; 81001; 81025; 83036; 83735; 84443; 84484; 85025; 93005; 93306; 96365; 96375; 99291; G0378; J2405